=== PATIENT | male | born 1985 | race Hispanic/Latino ===

== ENCOUNTER 2024-01-21 15:10 | Outpatient (CLI) | payer OTHER | END 2024-01-21 15:11 | disposition home or self-care (01) | LOC: BICMRI 15:10 | PROVIDERS: ATTEND Podiatrist | DX: M79.672 Pain in left foot (principal); M76.72 Peroneal tendinitis, left leg; S86.312A Strain of muscle(s) and tendon(s) of peroneal muscle group at lower leg level, left leg, initial encounter ==